=== PATIENT | female | born 1945 | race African-American/Black ===

== ENCOUNTER 2016-11-26 14:01 | Inpatient (IN) | payer BC ==
[~2016-11-26] VITALS: Ht 160 cm; Wt 79.4 kg
[2016-11-26] MEDS ORDERED: IV NORMAL SALINE 1000ML BAG 1,000 ML IV SCH ×2 (15:41→18:51)
--- NOTE | 2016-11-26 15:45 | PHYS DOC ---
Past Medical History Past Medical History: Diabetes-Type II, Hypertension Past Surgical History: Cholecystectomy, Other Additional Past Surgical Histo: ovarian cyst surgery Alcohol Use: None Drug Use: None Adult General Chief Complaint Chief Complaint: RECTAL BLEED HPI HPI Patient is a 71 year old female who presents with complaint of bloody stools. Patient states that she started having abdominal cramping yesterday around dinnertime. Patient states that she had a few episodes of abdominal cramping and took Motrin to try to help with symptoms. Patient states that approximately 2:30 this morning the patient started having cramping and passed blood clots in her stool. Patient states she had another episode of passing blood clots around noon today. For this reason the patient came to the emergency department for evaluation. Patient denies any pain currently. Patient has not had any associated fever, shortness of breath, or lightheadedness. Patient has not taken any other medications for her symptoms except for Motrin. Patient denies history of GI bleeds. Patient had a colonoscopy [address] Arreaga and states that no abnormalities for found at that time. Review of Systems Review of Systems Constitutional: Denies fever or chills [] Eyes: Denies change in visual acuity, redness, or eye pain [] HENT: Denies nasal congestion or sore throat [] Respiratory: Denies cough or shortness of breath [] Cardiovascular: No additional information not addressed in HPI [] GI: Abdominal pain, bloody stools, denies nausea or vomiting [] : Denies dysuria or hematuria [] Musculoskeletal: Denies back pain or joint pain [] Integument: Denies rash or skin lesions [] Neurologic: Denies headache, focal weakness or sensory changes [] Current Medications Current Medications Current Medications Medications (Trade) Dose Ordered Sig/Sonido Start Time Stop Time Status Last Admin Dose Admin Acetaminophen (Tylenol) 650 mg PRN Q4HRS PRN 11/26/16 19:00 11/27/16 18:59 Fentanyl Citrate 50 mcg 50 mcg PRN Q2HR PRN 11/26/16 19:00 11/27/16 18:59 Ondansetron HCl (Zofran) 4 mg PRN Q8HRS PRN 11/26/16 19:00 11/27/16 18:59 Sodium Chloride (Iv Sodium Chloride 0.9% 1000ml Bag) 1,000 ml @ 100 mls/hr Q10H 11/26/16 18:51 11/27/16 18:50 Allergies Allergies Allergies Coded Allergies Type Severity Reaction Last Updated Verified No Known Drug Allergies 11/26/16 No Physical Exam Physical Exam Constitutional: Alert, afebrile, no acute distress. [] HENT: Normocephalic, atraumatic, bilateral external ears normal, oropharynx moist, no oral exudates, nose normal. [] Eyes: PERRLA, EOMI, conjunctiva normal, no discharge. [] Neck: Normal range of motion, no tenderness, supple, no stridor. [] Cardiovascular:Heart rate regular rhythm, no murmur [] Lungs & Thorax: Bilateral breath sounds clear to auscultation [] Abdomen: Bowel sounds normal, soft, no tenderness, no masses, no pulsatile masses. Rectal: Nonbleeding external hemorrhoid present, nontender on exam, gross blood present [] Skin: Warm, dry, no erythema, no rash. [] Back: No tenderness, no CVA tenderness. [] Extremities: No tenderness, no cyanosis, no clubbing, ROM intact, no edema. [] Neurologic: Alert and oriented X 3, normal motor function, normal sensory function, no focal deficits noted. [] Current Patient Data Vital Signs Vital Signs Date Time Temp Pulse Resp B/P Pulse Ox O2 Delivery O2 Flow Rate FiO2 11/26/16 17:30 70 170/89 100 11/26/16 14:07 97.7 16 Room Air 97.7 Lab Values Laboratory Tests Test 11/26/16 14:25 11/26/16 16:25 11/26/16 16:43 Urine Collection Type Unknown Urine Color Yellow Urine Clarity Clear Urine pH 6.0 Urine Specific [place] 1.025 Urine Protein 100mg/dL (NEG-TRACE) Urine Glucose (UA) >=1000mg/dL (NEG) Urine Ketones (Stick) Negativemg/dL (NEG) Urine Blood Negative (NEG) Urine Nitrite Negative (NEG) Urine Bilirubin Negative (NEG) Urine Urobilinogen Dipstick 0.2mg/dL (0.2 mg/dL) Urine Leukocyte Esterase Negative (NEG) Urine RBC 0/HPF (0-2) Urine WBC 1-4/HPF (0-4) Urine Squamous Epithelial Cells Few/LPF Urine Bacteria 0/HPF (0-FEW) Urine Mucus Mod/LPF White Blood Count 5.5x10^3/uL (4.0-11.0) Red Blood Count 4.40x10^6/uL (3.50-5.40) Hemoglobin 13.2g/dL (12.0-15.5) Hematocrit 40.5% (36.0-47.0) Mean Corpuscular Volume 92fL (79-100) Mean Corpuscular Hemoglobin 30pg (25-35) Mean Corpuscular Hemoglobin Concent 33g/dL (31-37) Red Cell Distribution Width 14.4% (11.5-14.5) Platelet Count 220x10^3/uL (140-400) Neutrophils (%) (Auto) 64% (31-73) Lymphocytes (%) (Auto) 27% (24-48) Monocytes (%) (Auto) 6% (0-9) Eosinophils (%) (Auto) 2% (0-3) Basophils (%) (Auto) 0% (0-3) Neutrophils # (Auto) 3.5x10^3uL (1.8-7.7) Lymphocytes # (Auto) 1.5x10^3/uL (1.0-4.8) Monocytes # (Auto) 0.3x10^3/uL (0.0-1.1) Eosinophils # (Auto) 0.1x10^3/uL (0.0-0.7) Basophils # (Auto) 0.0x10^3/uL (0.0-0.2) Prothrombin Time 13.5SEC (11.7-14.0) Prothrombin Time INR 1.1 (0.8-1.1) PTT 26SEC (24-38) Sodium Level 139mmol/L (136-145) Potassium Level 3.9mmol/L (3.5-5.1) Chloride Level 101mmol/L (98-107) Carbon Dioxide Level 30mmol/L (21-32) Anion Gap 8 (6-14) Blood Urea Nitrogen 12mg/dL (7-20) Creatinine 0.8mg/dL (0.6-1.0) Estimated GFR (Cockcroft-Gault) 86.1 BUN/Creatinine Ratio 15 (6-20) Glucose Level 191mg/dL (70-99) H Calcium Level 9.5mg/dL (8.5-10.1) Total Bilirubin 0.4mg/dL (0.2-1.0) Aspartate Amino Transferase (AST) 16U/L (15-37) Alanine Aminotransferase (ALT) 18U/L (14-59) Alkaline Phosphatase 67U/L (46-116) Total Protein 8.0g/dL (6.4-8.2) Albumin 3.6g/dL (3.4-5.0) Albumin/Globulin Ratio 0.8 (1.0-1.7) L Lipase 99U/L (73-393) Stool Occult Blood Positive (NEG) Laboratory Tests 11/26/16 16:25 Laboratory Tests 11/26/16 16:25 EKG EKG Not performed [] Radiology/Procedures Radiology/Procedures [facility] [address] [place] [address] IMAGING REPORT Signed PATIENT: KAUSHAL IZAGUIRRE ACCOUNT: [id number] : 1945 LOCATION: ER AGE: 71 SEX: F EXAM STATUS: REG ER ORD. PHYSICIAN: GIBSON PARRISH MD REASON: abdominal cramping, bloody stools PROCEDURE: ABDOMEN SUPINE & UPRIGHT Abdomen, 2 views, 11/26/2016: History: Abdominal cramping and bloody stools There is a small amount of radiopaque material mixed with stool in scattered portions of the colon. The abdominal gas pattern is otherwise unremarkable. No free air is seen in the abdomen. There is no evidence of organomegaly. Lower pelvic calcifications are probably vascular. There are mild degenerative changes in the lumbar spine. IMPRESSION: No acute abdominal abnormality is detected. DICTATED and SIGNED BY: AVELINA MARTINEZ MD DATE: 11/26/16 4198 CC: GIBSON PARRISH MD; ALEXIA GIRALDO MD ~ [] Course & Med Decision Making Course & Med Decision Making Pertinent Labs and Imaging studies reviewed. (See chart for details) Patient's blood work reveals stable hemoglobin at this time. Patient started on IV fluids in the emergency department. I spoke with Dr. Flores. Due to age and unpredictable nature of bleeding, he recommended that the patient be admitted and would agree to consult on patient in hospital. I spoke with Dr. Beyer who accepted care patient in hospital. Dragon Disclaimer Dragon Disclaimer This electronic medical record was generated, in whole or in part, using a voice recognition dictation system. Departure Departure Impression: Primary Impression: Lower GI bleed Additional Impression: Type 2 diabetes mellitus Disposition: 09 ADMITTED INPATIENT Admitting Physician: Leobardo Beyer Condition: GUARDED Referrals: ALEXIA GIRALDO MD (PCP) Problem Qualifiers Additional Impression: Type 2 diabetes mellitus Diabetes mellitus complication status: with hyperglycemia Diabetes mellitus rat exterminator insulin use: unspecified mcc insulin use status Qualified Code : E11.65 - Type 2 diabetes mellitus with hyperglycemia GIBSON PARRISH MD Nov 26, 2016 15:45
[2016-11-26 16:17] LABS: BILIRUBIN,URINE NEGATIVE (NEG); GLUCOSE,URINE >=1000 mg/dL (NEG); NITRITE,URINE NEGATIVE (NEG); PROTEIN,URINE 100 mg/dL (NEG-TRACE); UROBILINOGEN,URINE 0.2 mg/dL (0.2 mg/dL)
[2016-11-26 16:18] LABS: BACTERIA,URINE 0 /HPF (0-FEW); RBC,URINE 0 /HPF (0-2); SQUAMOUS EPITHELIAL CELL,UR FEW /LPF
--- NOTE | 2016-11-26 16:23 | RAD ---
Abdomen, 2 views, 11/26/2016: History: Abdominal cramping and bloody stools There is a small amount of radiopaque material mixed with stool in scattered portions of the colon. The abdominal gas pattern is otherwise unremarkable. No free air is seen in the abdomen. There is no evidence of organomegaly. Lower pelvic calcifications are probably vascular. There are mild degenerative changes in the lumbar spine. IMPRESSION: No acute abdominal abnormality is detected.
[2016-11-26 16:37] LABS: BASO % 0 % (0-3); EOS % 2 % (0-3); HEMATOCRIT 40.5 % (36.0-47.0); HEMOGLOBIN 13.2 g/dL (12.0-15.5); LYMPH # 1.5 x10^3/uL (1.0-4.8); LYMPH % 27 % (24-48); MEAN CORPUSCULAR HEMOGLOBIN 30 pg (25-35); MEAN CORPUSCULAR HGB CONC 33 g/dL (31-37); MEAN CORPUSCULAR VOLUME 92 fL (79-100); MONO % 6 % (0-9); NEUT % 64 % (31-73); PLATELET COUNT 220 x10^3/uL (140-400); RED CELL DISTRIBUTION WIDTH 14.4 % (11.5-14.5); WHITE BLOOD COUNT 5.5 x10^3/uL (4.0-11.0)
[2016-11-26 16:49] LABS: INR 1.1 (0.8-1.1); PROTHROMBIN TIME PATIENT 13.5 SEC (11.7-14.0)
[2016-11-26 16:55] LABS: NEG OBC FOB NEG; POS OBC FOB POS
[2016-11-26 16:56] LABS: CALCIUM 9.5 mg/dL (8.5-10.1); CREATININE 0.8 mg/dL (0.6-1.0); GFR 86.1; POTASSIUM 3.9 mmol/L (3.5-5.1)
[2016-11-26 17:00] LABS: ALBUMIN 3.6 g/dL (3.4-5.0); ALBUMIN/GLOBULIN RATIO 0.8 (1.0-1.7); TOTAL BILIRUBIN 0.4 mg/dL (0.2-1.0)
[2016-11-26] MEDS ORDERED: FENTANYL PF 100 MCG/2 ML VIAL. IV PRN (19:00)
[2016-11-26] MEDS ORDERED: ACETAMINOPHEN 325 MG TABLET. PO PRN (19:00)
[2016-11-26] MEDS ORDERED: ONDANSETRON PF 4 MG/2 ML VIAL. IV PRN (19:00)
[2016-11-26 20:30] VITALS: BP 161/81
[2016-11-27] MEDS ORDERED: LIRA0.6P2 SQ (20:41)
[2016-11-27] MEDS ORDERED: LOSA1TAB18 PO (20:54)
== END 2016-11-26 21:18 | disposition left against medical advice (07) | DRG 379 ==
LOC: ER 14:01 → ED HOLD 17:35 → 5 SOUTH 20:07
PROVIDERS: ADMIT Internal Medicine; ATTEND Internal Medicine
DX: K92.2 Gastrointestinal hemorrhage, unspecified (principal); I10 Essential (primary) hypertension; E11.65 Type 2 diabetes mellitus with hyperglycemia; Z79.899 Other long term (current) drug therapy; Z90.49 Acquired absence of other specified parts of digestive tract; Z79.4 Long term (current) use of insulin; Z53.21 Procedure and treatment not carried out due to patient leaving prior to being seen by health care provider
CPT/HCPCS: 36415; 74020; 80053; 81001; 82274; 83690; 85027; 85610; 85730; 86850; 86900; 86901; J7030; 99285-25

== ENCOUNTER 2016-11-27 09:53 | Observation (INO) | payer BC ==
[~2016-11-27] VITALS: Ht 160 cm; Wt 79.4 kg
[2016-11-27] MEDS ORDERED: IV NORMAL SALINE 1000ML BAG 1,000 ML IV ONE ×3 (10:30→17:00)
[2016-11-27] MEDS ORDERED: FAMOTIDINE 20 MG/2 ML VIAL IVP ONE (10:30)
[2016-11-27 11:27] LABS: BASO % 1 % (0-3); EOS % 3 % (0-3); HEMATOCRIT 37.4 % (36.0-47.0); HEMOGLOBIN 12.6 g/dL (12.0-15.5); LYMPH # 1.5 x10^3/uL (1.0-4.8); LYMPH % 32 % (24-48); MEAN CORPUSCULAR HEMOGLOBIN 30 pg (25-35); MEAN CORPUSCULAR HGB CONC 34 g/dL (31-37); MEAN CORPUSCULAR VOLUME 90 fL (79-100); MONO % 7 % (0-9); NEUT % 57 % (31-73); PLATELET COUNT 207 x10^3/uL (140-400); RED BLOOD COUNT 4.16 x10^6/uL (3.50-5.40); RED CELL DISTRIBUTION WIDTH 14.3 % (11.5-14.5); WHITE BLOOD COUNT 4.6 x10^3/uL (4.0-11.0)
[2016-11-27 11:28] LABS: BACTERIA,URINE FEW /HPF (0-FEW); BILIRUBIN,URINE NEGATIVE (NEG); GLUCOSE,URINE 250 mg/dL (NEG); NITRITE,URINE NEGATIVE (NEG); PH,URINE 5.5; PROTEIN,URINE NEGATIVE (NEG-TRACE); RBC,URINE RARE /HPF (0-2); SQUAMOUS EPITHELIAL CELL,UR FEW /LPF; UROBILINOGEN,URINE 0.2 mg/dL (0.2 mg/dL)
[2016-11-27 11:35] LABS: INR 1.1 (0.8-1.1); PROTHROMBIN TIME PATIENT 13.3 SEC (11.7-14.0)
[2016-11-27 11:41] LABS: CALCIUM 9.1 mg/dL (8.5-10.1); CREATININE 0.8 mg/dL (0.6-1.0); GFR 86.1; POTASSIUM 4.2 mmol/L (3.5-5.1)
[2016-11-27 12:02] LABS: ALBUMIN 3.4 g/dL (3.4-5.0); ALBUMIN/GLOBULIN RATIO 0.8 (1.0-1.7); TOTAL BILIRUBIN 0.4 mg/dL (0.2-1.0); TOTAL PROTEIN 7.8 g/dL (6.4-8.2)
--- NOTE | 2016-11-27 13:16 | PDOC2 ---
GI CONSULT Reason For Consult: Hematochezia HPI: HPI: 71 y/o AA female evaluated in the ER yesterday. While out to dinner on 11/25/16 , she developed some lower abdominal cramping and had multiple formed stools while at the restaurant. This happens occasionally; she has previously attributed cramping to h/o DM and skipping meals. Pain persisted on this occasion, and she felt a bit dizzy and diaphoretic. She went home, took ibuprofen, attempted to rest, and took some more ibuprofen. Around 2:30 a.m., she had another stool w/ a red blood/mucous "clot." This happened again after eating breakfast. At that point she decided to come to the ER. Admission was discussed last night; apparently there were no beds available and she preferred to sleep at home, so she left and returned this morning. Case discussed w/ PAM Palma. Bleeding and pain have not recurred. Typically does not take NSAIDs. Does take ASA 81mg QD. Denies reflux/heartburn, n/v, diarrhea, constipation, change in appetite, or weight loss. Occasional early satiety attributed to DM. No previous EGD. Recalls normal colonoscopy w/ Dr. Arreaga 5-6 years ago and one episode of diverticulitis ~10 years ago. Abd x-ray unrevealing yesterday, Hgb from 13.2 to 12.6. Still in ER, admission pending. PMH: PMH: CAD s/p stent on ASA, HTN, HLD, DM, diverticulitis, cholecystectomy (for cholelithiasis), unilateral salpingo-oophorectomy FH: Family History: No pertinent hx (denies GI cancers) Social History: Smoke: No Drugs: None ROS: GEN: +sweats HEENT: Denies blurred vision, sore throat CV: Denies chest pain RESP: Denies shortness of air, cough GI: Per HPI : Denies hematuria, dysuria ENDO: Denies weight changes NEURO: +dizziness MSK: Denies weakness, joint pain/swelling SKIN: Denies jaundice, pruritus VItals: Vitals: Vital Signs Date Time Temp Pulse Resp B/P Pulse Ox O2 Delivery O2 Flow Rate FiO2 11/27/16 09:58 97.5 88 18 151/82 98 Room Air 97.5 Labs: Labs: Laboratory Tests Test 11/27/16 10:25 11/27/16 11:20 Urine Collection Type Void Urine Color Yellow Urine Clarity Clear Urine pH 5.5 Urine Specific [place] 1.020 Urine Protein Negativemg/dL (NEG-TRACE) Urine Glucose (UA) 250mg/dL (NEG) Urine Ketones (Stick) Negativemg/dL (NEG) Urine Blood Negative (NEG) Urine Nitrite Negative (NEG) Urine Bilirubin Negative (NEG) Urine Urobilinogen Dipstick 0.2mg/dL (0.2 mg/dL) Urine Leukocyte Esterase Small (NEG) Urine RBC Rare/HPF (0-2) Urine WBC 1-4/HPF (0-4) Urine Squamous Epithelial Cells Few/LPF Urine Bacteria Few/HPF (0-FEW) Urine Mucus Marked/LPF White Blood Count 4.6x10^3/uL (4.0-11.0) Red Blood Count 4.16x10^6/uL (3.50-5.40) Hemoglobin 12.6g/dL (12.0-15.5) Hematocrit 37.4% (36.0-47.0) Mean Corpuscular Volume 90fL (79-100) Mean Corpuscular Hemoglobin 30pg (25-35) Mean Corpuscular Hemoglobin Concent 34g/dL (31-37) Red Cell Distribution Width 14.3% (11.5-14.5) Platelet Count 207x10^3/uL (140-400) Neutrophils (%) (Auto) 57% (31-73) Lymphocytes (%) (Auto) 32% (24-48) Monocytes (%) (Auto) 7% (0-9) Eosinophils (%) (Auto) 3% (0-3) Basophils (%) (Auto) 1% (0-3) Neutrophils # (Auto) 2.6x10^3uL (1.8-7.7) Lymphocytes # (Auto) 1.5x10^3/uL (1.0-4.8) Monocytes # (Auto) 0.3x10^3/uL (0.0-1.1) Eosinophils # (Auto) 0.1x10^3/uL (0.0-0.7) Basophils # (Auto) 0.0x10^3/uL (0.0-0.2) Prothrombin Time 13.3SEC (11.7-14.0) Prothromb Time International Ratio 1.1 (0.8-1.1) Activated Partial Thromboplast Time 25SEC (24-38) Sodium Level 139mmol/L (136-145) Potassium Level 4.2mmol/L (3.5-5.1) Chloride Level 102mmol/L (98-107) Carbon Dioxide Level 29mmol/L (21-32) Anion Gap 8 (6-14) Blood Urea Nitrogen 11mg/dL (7-20) Creatinine 0.8mg/dL (0.6-1.0) Estimated GFR (Cockcroft-Gault) 86.1 BUN/Creatinine Ratio 14 (6-20) Glucose Level 211mg/dL (70-99) Calcium Level 9.1mg/dL (8.5-10.1) Total Bilirubin 0.4mg/dL (0.2-1.0) Aspartate Amino Transf (AST/SGOT) 16U/L (15-37) Alanine Aminotransferase (ALT/SGPT) 20U/L (14-59) Alkaline Phosphatase 58U/L (46-116) Total Protein 7.8g/dL (6.4-8.2) Albumin 3.4g/dL (3.4-5.0) Albumin/Globulin Ratio 0.8 (1.0-1.7) Lipase 112U/L (73-393) Allergies: Coded Allergies: No Known Drug Allergies (Unverified , 11/26/16) Medications: Current Medications Medications (Trade) Dose Ordered Sig/Sonido Route PRN Reason Start Time Stop Time Status Last Admin Dose Admin Sodium Chloride (Iv Sodium Chloride 0.9% 1000ml Bag) 1,000 ml @ 1,000 mls/hr 1X ONCE IV 11/27/16 10:30 11/27/16 11:29 DC 11/27/16 11:21 Famotidine (Pepcid) 20 mg 1X ONCE IVP 11/27/16 10:30 11/27/16 10:33 DC 11/27/16 11:22 Imaging: Imaging: Abd X-Ray 11/26/16 IMPRESSION: No acute abdominal abnormality is detected. PE: GEN: NAD HEENT: Atraumatic, PERRL LUNGS: CTAB anteriorly HEART: RRR ABD: NABS, S/ND/NT EXTREMITY: No edema SKIN: No rashes, no jaundice NEURO/PSYCH: A & O 3 A/P: A/P: Hematochezia -twice yesterday, associated w/ abd cramping, dizziness, and sweating ---> has been symptomatic since -Hgb from 13.2 to 12.6 -h/o intermittent abd cramping, occ. early satiety CRC screen -reports normal colonoscopy ~5 years ago H/o diverticulitis H/o CAD s/p stent -on ASA 81mg QD -- Pt agrees to proceed w/ colonoscopy tomorrow a.m. after prep. Clears today w/ Miralax prep, NPO at midnight. D/w GI lab. YANIRA VALLADARES Nov 27, 2016 13:16
[2016-11-27] MEDS ORDERED: ONDANSETRON PF 4 MG/2 ML VIAL. IV PRN ×2 (14:00→16:15)
[2016-11-27] MEDS ORDERED: MORPHINE SULFATE 2 MG/ML DISP.SYRIN. IV PRN (14:00)
--- NOTE | 2016-11-27 14:54 | PHYS DOC ---
Past Medical History Past Medical History: Diabetes-Type II, Hypertension Past Surgical History: Cholecystectomy, Other Additional Past Surgical Histo: ovarian cyst surgery Alcohol Use: None Drug Use: None Adult General Chief Complaint Chief Complaint: RECTAL BLEED HPI HPI Patient is a 71 year old female with history of diabetes type 2 and hypertension who presents today with rectal bleeding. Patient states on November she went out for dinner with some friends. She states she developed lower abdominal pain, she states she had a bowel movement that evening. She states she took ibuprofen and then rested for a while, she states her pain continue. She states she took another ibuprofen and went to bed. She states around 2 AM she woke up and had a bloody stool. Patient states she woke up in the morning and had a normal breakfast, she states she also had another bloody mucousy stool. She states she decided to come to the ED to be evaluated yesterday. She states they told her she needs to admitted. Patient states she could not stay in the ED because they told her they do not have any beds in patient and she will stay in the ED until a bed opens up. Patient states she knew if she stays in the ED she'll not be able to sleep well, she states she preferred to go home and sleep in her own bed. She presents today stating she would like to be admitted. She states she has not had any bloody stools today. Patient denies any nausea vomiting. Denies any abdominal pain. Review of Systems Review of Systems Constitutional: Denies fever or chills [] Eyes: Denies change in visual acuity, redness, or eye pain [] HENT: Denies nasal congestion or sore throat [] Respiratory: Denies cough or shortness of breath [] Cardiovascular: No additional information not addressed in HPI [] GI: Bloody stools : Denies dysuria or hematuria [] Musculoskeletal: Denies back pain or joint pain [] Integument: Denies rash or skin lesions [] Neurologic: Denies headache, focal weakness or sensory changes [] Endocrine: Denies polyuria or polydipsia [] Current Medications Current Medications Current Medications Medications (Trade) Dose Ordered Sig/Sonido Start Time Stop Time Status Last Admin Dose Admin Famotidine (Pepcid) 20 mg 1X ONCE 11/27/16 10:30 11/27/16 10:33 DC 11/27/16 11:22 20 MG Sodium Chloride (Iv Sodium Chloride 0.9% 1000ml Bag) 1,000 ml @ 1,000 mls/hr 1X ONCE 11/27/16 10:30 11/27/16 11:29 DC 11/27/16 11:21 1,000 MLS/HR Allergies Allergies Allergies Coded Allergies Type Severity Reaction Last Updated Verified No Known Drug Allergies 11/26/16 No Physical Exam Physical Exam Constitutional: Well developed, well nourished, no acute distress, non-toxic appearance. [] HENT: Normocephalic, atraumatic, bilateral external ears normal, oropharynx moist, no oral exudates, nose normal. [] Eyes: PERRLA, EOMI, conjunctiva normal, no discharge. [] Neck: Normal range of motion, no tenderness, supple, no stridor. [] Cardiovascular:Heart rate regular rhythm, no murmur [] Lungs & Thorax: Bilateral breath sounds clear to auscultation [] Abdomen: Bowel sounds normal, soft, no tenderness, no masses, no pulsatile masses. [] Skin: Warm, dry, no erythema, no rash. [] Back: No tenderness, no CVA tenderness. [] Extremities: No tenderness, no cyanosis, no clubbing, ROM intact, no edema. [] Neurologic: Alert and oriented X 3, normal motor function, normal sensory function, no focal deficits noted. [] Psychologic: Affect normal, judgement normal, mood normal. [] Current Patient Data Vital Signs Vital Signs Date Time Temp Pulse Resp B/P Pulse Ox O2 Delivery O2 Flow Rate FiO2 11/27/16 09:58 97.5 88 18 151/82 98 Room Air 97.5 Lab Values Laboratory Tests Test 11/27/16 10:25 Urine Collection Type Void Urine Color Yellow Urine Clarity Clear Urine pH 5.5 Urine Specific [place] 1.020 Urine Protein Negativemg/dL (NEG-TRACE) Urine Glucose (UA) 250mg/dL (NEG) Urine Ketones (Stick) Negativemg/dL (NEG) Urine Blood Negative (NEG) Urine Nitrite Negative (NEG) Urine Bilirubin Negative (NEG) Urine Urobilinogen Dipstick 0.2mg/dL (0.2 mg/dL) Urine Leukocyte Esterase Small (NEG) Urine RBC Rare/HPF (0-2) Urine WBC 1-4/HPF (0-4) Urine Squamous Epithelial Cells Few/LPF Urine Bacteria Few/HPF (0-FEW) Urine Mucus Marked/LPF EKG EKG [] Radiology/Procedures Radiology/Procedures [] Course & Med Decision Making Course & Med Decision Making Pertinent Labs and Imaging studies reviewed. (See chart for details) Patient is in the ED requesting to be admitted. She was in the ED yesterday and was supposed to be admitted for lower GI bleed. She left because there was no bed in the hospital and she did not want to stay in the ED until a bed opens up. She has not had any rectal bleeding today. Her hemoglobin was 13.2 with hematocrit of 40.5 yesterday, hemoglobin is 12.6 with hematocrit of 37.4. 10:32 Consulted with Ana Flores's PA. She stated she'll follow-up with the patient. 10:[address] Mccord who accepted patient for admission. Dragon Disclaimer Dragon Disclaimer This electronic medical record was generated, in whole or in part, using a voice recognition dictation system. Departure Departure Impression: Primary Impression: Lower GI bleed Disposition: ADMITTED INPATIENT Condition: STABLE Referrals: ALEXIA GIRALDO MD (PCP) ADELFO KING APRN Nov 27, 2016 14:54
[2016-11-27] MEDS ORDERED: POLYETHYLENE GLYCOL 3350 238 GM POWDER PO ONE (15:30)
[2016-11-27] MEDS ORDERED: ALBUTEROL SULFATE 2.5 MG/3 ML NEBU. NEB PRN (16:15)
[2016-11-27] MEDS ORDERED: ACETAMINOPHEN 325 MG TABLET. PO PRN (16:15)
[2016-11-27] MEDS ORDERED: hydrALAZINE 20 MG/ML VIAL. IVP PRN (16:15)
[2016-11-27] MEDS ORDERED: HYDROCODONE/APAP 5/325MG TABLET. PO PRN (16:15)
--- NOTE | 2016-11-27 16:35 | PDOC1 ---
History and Physical Social History Smoke: No Drugs: None Current Problem List Problem List Problems Medical Problems: (1) Lower GI bleed Status: Acute Current Medications Current Medications Current Medications Medications (Trade) Dose Ordered Sig/Sonido Start Time Stop Time Status Last Admin Dose Admin Acetaminophen (Tylenol) 325 mg PRN Q6HRS PRN 11/27/16 16:15 Acetaminophen/ Hydrocodone Bitart (Lortab 5/325) 1 tab PRN Q6HRS PRN 11/27/16 16:15 Albuterol Sulfate (Ventolin Neb Soln) 2.5 mg PRN Q4HRS PRN 11/27/16 16:15 Famotidine (Pepcid) 20 mg 1X ONCE 11/27/16 10:30 11/27/16 10:33 DC 11/27/16 11:22 20 MG Famotidine 20 mg 20 mg BID 11/27/16 21:00 Hydralazine HCl (Apresoline) 10 mg PRN Q4HRS PRN 11/27/16 16:15 Morphine Sulfate 2 mg PRN Q2HR PRN 11/27/16 14:00 11/28/16 13:59 Ondansetron HCl (Zofran) 4 mg PRN Q8HRS PRN 11/27/16 16:15 Polyethylene Glycol (miraLAX Powder BULK BOTTLE) 238 gm 1X ONCE 11/27/16 15:30 11/27/16 15:31 DC 11/27/16 13:44 238 GM Sodium Chloride (Iv Sodium Chloride 0.9% 1000ml Bag) 1,000 ml @ 75 mls/hr 1X ONCE 11/27/16 14:00 11/28/16 03:19 Allergies Allergies Allergies Coded Allergies Type Severity Reaction Last Updated Verified No Known Drug Allergies 11/26/16 No ROS Review of System CONSTITUTIONAL: No fever or chills EYES: No recent changes SKIN: No rash or itching CARDIOVASCULAR: No chest pain, syncope, palpitations, or edema RESPIRATORY: No SOB or cough GASTROINTESTINAL: Abdominal pain, Hematochezia NEUROLOGICAL: No headaches or weakness ENDOCRINE: No cold or heat intolerance GENITOURINARY: No urgency or frequency of urination MUSCULOSKELETAL: No back pain or joint pain LYMPHATICS: No enlarged lymph nodes PSYCHIATRIC: No anxiety or depression Physical Exam Physical Exam GEN.: No apparent distress. Alert and oriented. HEENT: Head is normocephalic, atraumatic NECK: Supple. LUNGS: Clear to auscultation. HEART: RRR, S1, S2 present. Peripheral pulses intact ABDOMEN: Soft, nontender. Positive bowel sounds. EXTREMITIES: Without any cyanosis. NEUROLOGIC: Normal speech, normal tone PSYCHIATRIC: Normal affect, normal mood. SKIN: No ulcerations Vitals Vitals Vital Signs Date Time Temp Pulse Resp B/P Pulse Ox O2 Delivery O2 Flow Rate FiO2 11/27/16 09:58 97.5 88 18 151/82 98 Room Air 97.5 Labs Labs Laboratory Tests Test 11/27/16 10:25 11/27/16 11:20 Urine Collection Type Void Urine Color Yellow Urine Clarity Clear Urine pH 5.5 Urine Specific [place] 1.020 Urine Protein Negativemg/dL (NEG-TRACE) Urine Glucose (UA) 250mg/dL (NEG) Urine Ketones (Stick) Negativemg/dL (NEG) Urine Blood Negative (NEG) Urine Nitrite Negative (NEG) Urine Bilirubin Negative (NEG) Urine Urobilinogen Dipstick 0.2mg/dL (0.2 mg/dL) Urine Leukocyte Esterase Small (NEG) Urine RBC Rare/HPF (0-2) Urine WBC 1-4/HPF (0-4) Urine Squamous Epithelial Cells Few/LPF Urine Bacteria Few/HPF (0-FEW) Urine Mucus Marked/LPF White Blood Count 4.6x10^3/uL (4.0-11.0) Red Blood Count 4.16x10^6/uL (3.50-5.40) Hemoglobin 12.6g/dL (12.0-15.5) Hematocrit 37.4% (36.0-47.0) Mean Corpuscular Volume 90fL (79-100) Mean Corpuscular Hemoglobin 30pg (25-35) Mean Corpuscular Hemoglobin Concent 34g/dL (31-37) Red Cell Distribution Width 14.3% (11.5-14.5) Platelet Count 207x10^3/uL (140-400) Neutrophils (%) (Auto) 57% (31-73) Lymphocytes (%) (Auto) 32% (24-48) Monocytes (%) (Auto) 7% (0-9) Eosinophils (%) (Auto) 3% (0-3) Basophils (%) (Auto) 1% (0-3) Neutrophils # (Auto) 2.6x10^3uL (1.8-7.7) Lymphocytes # (Auto) 1.5x10^3/uL (1.0-4.8) Monocytes # (Auto) 0.3x10^3/uL (0.0-1.1) Eosinophils # (Auto) 0.1x10^3/uL (0.0-0.7) Basophils # (Auto) 0.0x10^3/uL (0.0-0.2) Prothrombin Time 13.3SEC (11.7-14.0) Prothromb Time International Ratio 1.1 (0.8-1.1) Activated Partial Thromboplast Time 25SEC (24-38) Sodium Level 139mmol/L (136-145) Potassium Level 4.2mmol/L (3.5-5.1) Chloride Level 102mmol/L (98-107) Carbon Dioxide Level 29mmol/L (21-32) Anion Gap 8 (6-14) Blood Urea Nitrogen 11mg/dL (7-20) Creatinine 0.8mg/dL (0.6-1.0) Estimated GFR (Cockcroft-Gault) 86.1 BUN/Creatinine Ratio 14 (6-20) Glucose Level 211mg/dL (70-99) Calcium Level 9.1mg/dL (8.5-10.1) Total Bilirubin 0.4mg/dL (0.2-1.0) Aspartate Amino Transf (AST/SGOT) 16U/L (15-37) Alanine Aminotransferase (ALT/SGPT) 20U/L (14-59) Alkaline Phosphatase 58U/L (46-116) Total Protein 7.8g/dL (6.4-8.2) Albumin 3.4g/dL (3.4-5.0) Albumin/Globulin Ratio 0.8 (1.0-1.7) Lipase 112U/L (73-393) Laboratory Tests Test 11/27/16 10:25 11/27/16 11:20 Urine Collection Type Void Urine Color Yellow Urine Clarity Clear Urine pH 5.5 Urine Specific [place] 1.020 Urine Protein Negativemg/dL (NEG-TRACE) Urine Glucose (UA) 250mg/dL (NEG) Urine Ketones (Stick) Negativemg/dL (NEG) Urine Blood Negative (NEG) Urine Nitrite Negative (NEG) Urine Bilirubin Negative (NEG) Urine Urobilinogen Dipstick 0.2mg/dL (0.2 mg/dL) Urine Leukocyte Esterase Small (NEG) Urine RBC Rare/HPF (0-2) Urine WBC 1-4/HPF (0-4) Urine Squamous Epithelial Cells Few/LPF Urine Bacteria Few/HPF (0-FEW) Urine Mucus Marked/LPF White Blood Count 4.6x10^3/uL (4.0-11.0) Red Blood Count 4.16x10^6/uL (3.50-5.40) Hemoglobin 12.6g/dL (12.0-15.5) Hematocrit 37.4% (36.0-47.0) Mean Corpuscular Volume 90fL (79-100) Mean Corpuscular Hemoglobin 30pg (25-35) Mean Corpuscular Hemoglobin Concent 34g/dL (31-37) Red Cell Distribution Width 14.3% (11.5-14.5) Platelet Count 207x10^3/uL (140-400) Neutrophils (%) (Auto) 57% (31-73) Lymphocytes (%) (Auto) 32% (24-48) Monocytes (%) (Auto) 7% (0-9) Eosinophils (%) (Auto) 3% (0-3) Basophils (%) (Auto) 1% (0-3) Neutrophils # (Auto) 2.6x10^3uL (1.8-7.7) Lymphocytes # (Auto) 1.5x10^3/uL (1.0-4.8) Monocytes # (Auto) 0.3x10^3/uL (0.0-1.1) Eosinophils # (Auto) 0.1x10^3/uL (0.0-0.7) Basophils # (Auto) 0.0x10^3/uL (0.0-0.2) Prothrombin Time 13.3SEC (11.7-14.0) Prothromb Time International Ratio 1.1 (0.8-1.1) Activated Partial Thromboplast Time 25SEC (24-38) Sodium Level 139mmol/L (136-145) Potassium Level 4.2mmol/L (3.5-5.1) Chloride Level 102mmol/L (98-107) Carbon Dioxide Level 29mmol/L (21-32) Anion Gap 8 (6-14) Blood Urea Nitrogen 11mg/dL (7-20) Creatinine 0.8mg/dL (0.6-1.0) Estimated GFR (Cockcroft-Gault) 86.1 BUN/Creatinine Ratio 14 (6-20) Glucose Level 211mg/dL (70-99) Calcium Level 9.1mg/dL (8.5-10.1) Total Bilirubin 0.4mg/dL (0.2-1.0) Aspartate Amino Transf (AST/SGOT) 16U/L (15-37) Alanine Aminotransferase (ALT/SGPT) 20U/L (14-59) Alkaline Phosphatase 58U/L (46-116) Total Protein 7.8g/dL (6.4-8.2) Albumin 3.4g/dL (3.4-5.0) Albumin/Globulin Ratio 0.8 (1.0-1.7) Lipase 112U/L (73-393) VTE Prophylaxis Ordered VTE Prophylaxis Devices: No VTE Pharmacological Prophylaxi: No VICENTE LOPEZ MD Nov 27, 2016 16:35
[2016-11-27 17:25] LABS: BASO % 1 % (0-3); EOS % 3 % (0-3); HEMATOCRIT 37.2 % (36.0-47.0); LYMPH % 41 % (24-48); MEAN CORPUSCULAR HEMOGLOBIN 30 pg (25-35); MEAN CORPUSCULAR HGB CONC 32 g/dL (31-37); MEAN CORPUSCULAR VOLUME 92 fL (79-100); MONO % 6 % (0-9); NEUT % 49 % (31-73); PLATELET COUNT 204 x10^3/uL (140-400); RED BLOOD COUNT 4.05 x10^6/uL (3.50-5.40); RED CELL DISTRIBUTION WIDTH 14.3 % (11.5-14.5); WHITE BLOOD COUNT 4.7 x10^3/uL (4.0-11.0)
[2016-11-27 19:00] VITALS: BP 166/75
[2016-11-27 19:42] VITALS: BP 166/75
[2016-11-27] MEDS ORDERED: LIRA0.6P2 SQ (20:41)
[2016-11-27] MEDS: FAMOTIDINE 20 MG/2 ML VIAL IVP SCH (20:53)
[2016-11-27] MEDS ORDERED: LOSA1TAB18 PO (20:54)
[2016-11-27 22:49] VITALS: BP 156/84
[2016-11-28 00:55] LABS: HEMATOCRIT 37.5 % (36.0-47.0); HEMOGLOBIN 12.3 g/dL (12.0-15.5); RED BLOOD COUNT 4.09 x10^6/uL (3.50-5.40); RED CELL DISTRIBUTION WIDTH 14.3 % (11.5-14.5)
--- NOTE | 2016-11-28 01:43 | HP ---
ADMIT DATE: 11/27/2016 CHIEF COMPLAINT: Hematochezia. HISTORY OF PRESENT ILLNESS: This is a 71-year-old -[place] female patient with history of diabetes and hypertension presented to the ER with complaints of bloody stools which have been happening occasionally and periodically; however, two days ago the patient went out for dinner, she noted to have abdominal cramping and multiple foam mixed stools, which is happening periodically. Also she had two times bowel movements yesterday with some abdominal discomfort and cramps. She denies any fevers, chills. However, she had a colonoscopy [address] Arreaga which showed some diverticulitis. She denies any stephanie bleeding or hematemesis or any polyps or internal hemorrhoids in the past. At the time of my examination, the patient denies any symptoms and she was supposed to be admitted to the hospital yesterday; however she was not willing to admit to the hospital as there are no enough beds. She had to stay in the yard, so she left and came back and today she has been placed on observation for another colonoscopy. PAST MEDICAL HISTORY: Hypertension, diabetes mellitus, diverticulitis, cholecystectomy, and coronary artery disease with stenting. FAMILY HISTORY: No gastrointestinal cancer. SOCIAL HISTORY: No smoking. No alcohol. No drug abuse. ALLERGIES: NKDA. REVIEW OF SYSTEMS: Please see my electronic H and P. PHYSICAL EXAMINATION: Please see my electronic H and P. IMAGING STUDIES: Chest x-ray abdomen, no acute process seen. LABORATORY FINDINGS: CBC within normal limits, hemoglobin is 12.0, hematocrit 37.2. Chemistry panel within normal limits. PT/INR within normal limits. ASSESSMENT: 1. Hematochezia of unclear etiology. 2. Hypertension. 3. Diabetes. PLAN: 1. She has been admitted to the hospital for observation and Gastroenterology has been consulted. We will check her hemoglobin Q6hrs If hemoglobin drops less than 8, we will transfuse 1 unit of PRBC. 2. Gastroenterology is scheduling for a possible colonoscopy tomorrow. 3. I will hold her diabetic medications as she is NPO 4. Continue hydrochlorothiazide and ARB for HTN. 5. Monitor symptoms closely. 6. No DVT prophylaxis. VICENTE LOPEZ MD DR: EBONY/meena JOB#: [id number] / [id number] [facility]
[2016-11-28 03:08] VITALS: BP 131/76
[2016-11-28 05:32] LABS: CALCIUM 8.9 mg/dL (8.5-10.1); CREATININE 0.7 mg/dL (0.6-1.0); GFR 100.4; POTASSIUM 3.6 mmol/L (3.5-5.1)
[2016-11-28 06:38] LABS: BASO % 0 % (0-3); EOS % 3 % (0-3); HEMATOCRIT 36.4 % (36.0-47.0); HEMOGLOBIN 12.5 g/dL (12.0-15.5); LYMPH # 1.6 x10^3/uL (1.0-4.8); LYMPH % 36 % (24-48); MEAN CORPUSCULAR HEMOGLOBIN 31 pg (25-35); MEAN CORPUSCULAR HGB CONC 34 g/dL (31-37); MEAN CORPUSCULAR VOLUME 90 fL (79-100); MONO % 10 % (0-9); NEUT % 51 % (31-73); PLATELET COUNT 201 x10^3/uL (140-400); RED BLOOD COUNT 4.07 x10^6/uL (3.50-5.40); RED CELL DISTRIBUTION WIDTH 14.2 % (11.5-14.5); WHITE BLOOD COUNT 4.3 x10^3/uL (4.0-11.0)
[2016-11-28 07:00] VITALS: BP 148/81
[2016-11-28] MEDS ORDERED: HYDROCHLOROTHIAZIDE 12.5 MG CAPSULE. PO SCH (09:00)
[2016-11-28] MEDS ORDERED: LOSARTAN POTASSIUM 50 MG TABLET. PO SCH (09:00)
[2016-11-28] MEDS: FAMOTIDINE 20 MG/2 ML VIAL IVP SCH (10:15)
--- NOTE | 2016-11-28 10:44 | ACF ---
Admit Criteria Forms Admit Criteria Forms Admit Criteria Forms GASTROINTESTINAL BLEEDING, LOWER Clinical Indications for Admission to Inpatient Care ( Place 'X' for any and all applicable criteria): Admission is indicated for ANY ONE of the following(1)(2)(3)(4)(5): [X]I. Active gross bleeding per rectum [ ]II. Inpatient admission required rather than observation care (Also use Gastrointestinal Bleeding, Lower: Observation Care as appropriate) because of ANY ONE of the following: [ ]a) Hemodynamic instability that is severe or persistent [ ]b) Anemia requiring inpatient admission as indicated by ALL of the following: [ ]1) Presence of significant clinical finding indicated by ANY ONE of the following: [ ]A. Tachycardia for age [ ]B. Orthostatic vital sign changes [ ]C. Cognitive impairment [ ]D. Heart failure [ ]E. Chest pain [ ]F. Exertional dyspnea [ ]G. Other findings suggesting inadequate perfusion (eg, peripheral or myocardial ischemia, end organ dysfunction) [ ]2) Initial (eg, emergency department, observation care) treatment with transfusion or volume replacement is judged inappropriate (due to severity of the finding) or has been ineffective [ ]c) Severe pain requiring acute inpatient management [ ]d) Absent bowel sounds with complete ileus [ ]e) Signs of intestinal obstruction or peritonitis [A] [ ]f) High-risk low platelet count [ ]g) Severe electrolyte abnormalities requiring inpatient care [ ]h) Acute renal failure [ ]i) High fever or infection requiring inpatient admission as indicated by ANY ONE of the following(8)(9): [ ]1) Appropriate outpatient or observation care antimicrobial treatment unavailable, not effective, or not feasible Documented bacteremia [ ]2) Documented bacteremia [ ]3) Temperature greater than 104.9 degrees F ( 40.5 degrees C) (oral) [ ]4) Temperature greater than 103.1 degrees F ( 39.5 degrees C) (oral) or less than 96.8 degrees F (36 degrees C) (rectal) that does not respond to all emergency treatment measures [ ]j) IV fluid to replace significant ongoing losses ( greater than 3 L/m2 per day) [ ]k) Immediate inpatient surgery needed [ ]l) Parenteral nutrition regimen that must be implemented on inpatient basis [ ]m) Other condition, treatment or monitoring requiring inpatient admission [ ]III. Unstable comorbid illness (renal, hepatic, pulmonary, hematologic, neurologic, or cardiac) [ ]IV. Failure to control bleeding after colonoscopy [ ]V. Coagulopathy [ ]. Suspected or known ischemic colitis(6) [ ]VII. Previous aortic graft placement or known aortic aneurysm Extended stay beyond goal length of stay may be needed for(3)(4)(28): [ ]a) Emergency surgery [ ]b) Coagulation abnormalities(26) [ ]c) Recurrent or persistent bleeding, continued vital sign instability(27)( 28) [ ]d) Active comorbidities (eg, renal insufficiency, heart failure, pre- existing liver disease) The original [employer] content created by [employer] has been revised. The portions of the content which have been revised are identified through the use of italic text or in bold, and [facility] has neither reviewed nor approved the modified material. All other unmodified content is copyright [employer]. Please see references footnoted in the original [employer] edition 2016 BERTRAM DURAN Nov 28, 2016 10:44
[2016-11-28 11:51] LABS: HEMATOCRIT 38.2 % (36.0-47.0); HEMOGLOBIN 12.4 g/dL (12.0-15.5); RED BLOOD COUNT 4.14 x10^6/uL (3.50-5.40); RED CELL DISTRIBUTION WIDTH 14.3 % (11.5-14.5); WHITE BLOOD COUNT 3.8 x10^3/uL (4.0-11.0)
[2016-11-28] MEDS ORDERED: IV RINGERS,LACTATED 1000ML 1,000 ML IV ONE (13:00)
[2016-11-28] MEDS ORDERED: PROPOFOL 20 ML IV ONE (13:55)
--- NOTE | 2016-11-28 14:22 | PDOC4 ---
Operative Note Operative Note Colonoscopy Meds propofol per anesthesia Pre-op dx acute blood loss anemia/rectal bleeding Post-op internal hemorrhoids sigmoid diverticulosis sigmoid lipoma with pillow sign Imp Rectal bleed -secondary to diverticular source Plan resume diet serial cbcs XAVIER KOLB MD Nov 28, 2016 14:22
[2016-11-28 16:27] VITALS: BP 124/62
--- NOTE | 2016-11-28 23:02 | DS ---
DATE OF DISCHARGE: 11/28/2016 DISCHARGE DIAGNOSES: Hematochezia due to internal hemorrhoids, sigmoid diverticulosis and sigmoid lipoma with pillow sign. BRIEF HOSPITAL COURSE: A 71-year-old female patient admitted to the hospital for rectal bleeding and hematochezia. She had chronic condition such as diabetes and hypertension. The patient was admitted to the hospital for observation and her hemoglobin has been monitored. During hospitalization, her hemoglobin is stable and she had a colonoscopy done by Dr. Flores. Colonoscopy results showed internal hemorrhoids with sigmoid diverticulosis, no acute obvious bleeding noted. She deemed clinically stable enough to go home and follow up with primary care doctor and also Dr. Flores as needed. DISCHARGE EXAMINATION: GENERAL: Alert, oriented x 3. HEART: S1, S2 present. LUNGS: Anterior chest is clear. ABDOMEN: Soft, nontender, no organomegaly. EXTREMITIES: No edema. DISCHARGE DISPOSITION: Home. DISCHARGE CONDITION: Stable. MEDICATIONS: Continue home medications. DISCHARGE TIME: Total time spent for discharge is 31 minutes for the patient education, counseling and coordination of care. VICENTE LOPEZ MD DR: EBONY/meena JOB#: [id number] / [id number]
== END 2016-11-28 17:43 | disposition home or self-care (01) ==
LOC: ER 09:53 → 5 SOUTH 10:40
PROVIDERS: ADMIT Internal Medicine; ATTEND Internal Medicine
DX: D50.0 Iron deficiency anemia secondary to blood loss (chronic) (principal); K57.30 Diverticulosis of large intestine without perforation or abscess without bleeding; K92.1 Melena; K64.8 Other hemorrhoids; D17.5 Benign lipomatous neoplasm of intra-abdominal organs; E11.9 Type 2 diabetes mellitus without complications; I25.10 Atherosclerotic heart disease of native coronary artery without angina pectoris; E78.5 Hyperlipidemia, unspecified; I10 Essential (primary) hypertension; K80.20 Calculus of gallbladder without cholecystitis without obstruction; Z95.5 Presence of coronary angioplasty implant and graft
CPT/HCPCS: 36415; 45378; 80048; 80053; 81001; 82947; 83690; 85027; 85610; 85730; 94250; 96374; 96376; 99285; G0378; J2704; J7030; S0028; G0379; J7120